=== PATIENT | female | born 1955 | race Caucasian/White ===

== ENCOUNTER 2020-12-29 20:36 | Emergency (ER) | payer OTHER ==
[~2020-12-29 20:36] MED LIST: ASPIRIN EC81 MG PO; CRESTOR10 MG PO; DRISDOL50000 UNIT PO; HUMALOG MI100 UNIT/1 SC; PRINIVIL20 MG PO; SLOW RELEASE I142 MG PO; SYNTHROID150 MCG PO; TRESIBA FL200 UNIT/1 SC; VICTOZA 3-0.6 MG/0.1 SC; ZOLOFT100 MG PO
[2020-12-29] MEDS ORDERED: AMOXICILLIN500 MG PO (21:00)
[2020-12-29] MEDS ORDERED: TYLENOL #31 EACH PO (21:00)
== END 2020-12-29 21:15 | disposition home or self-care (01) ==
LOC: FER 20:36
DX: K04.7 Periapical abscess without sinus (principal); K02.9 Dental caries, unspecified; I12.9 Hypertensive chronic kidney disease with stage 1 through stage 4 chronic kidney disease, or unspecified chronic kidney disease; E11.22 Type 2 diabetes mellitus with diabetic chronic kidney disease; N18.9 Chronic kidney disease, unspecified
CPT/HCPCS: 99282

== ENCOUNTER → 2021-08-28 | Day surgery (SDC) | payer MEDICARE ==
[~2021-08-28] VITALS: Ht 167.6 cm; Wt 108.9 kg
[~2021-08-28] MED LIST changes: +AMOXICILLIN500 MG PO; +TOUJEO MAX300 UNIT/1 SC; +TYLENOL #31 EACH PO
[2021-08-28 07:55] LABS: HCT 34.6 % (37.0-47.0); HGB 11.2 g/dl (12.5-16.0); MCH 30.5 pg (25.0-31.0); MCHC 32.4 g/dL (32.0-36.0); MCV 94.3 fL (78.0-100.0); MPV 10.4 fL (6.0-9.5); RBC 3.67 M/uL (4.20-5.40); RDW 13.2 % (11.5-14.0); WBC 6.6 K/uL (4.0-10.5)
[2021-08-28 08:06] LABS: ALBUMIN 3.4 g/dL (3.4-5.0); BILIRUBIN - TOTAL 0.2 mg/dL (0.2-1.0); BUN/CREAT RATIO (CALC) 19.8 RATIO; CREATININE 1.26 mg/dL (0.51-0.95); GLOBULIN (CALCULATION) 3.9 g/dL; POTASSIUM 3.6 mmol/L (3.5-5.1); TOTAL PROTEIN 7.3 g/dL (6.4-8.2)
== END | disposition home or self-care (01) ==
LOC: FAS 07-26 08:00
PROVIDERS: Surgery
DX: Z08 Encounter for follow-up examination after completed treatment for malignant neoplasm (principal); D12.6 Benign neoplasm of colon, unspecified; K58.9 Irritable bowel syndrome, unspecified; Z88.8 Allergy status to other drugs, medicaments and biological substances; Z90.49 Acquired absence of other specified parts of digestive tract; Z90.710 Acquired absence of both cervix and uterus; Z85.038 Personal history of other malignant neoplasm of large intestine
CPT/HCPCS: 36415; 80053; J1610; J2704; J7120